=== PATIENT | female | born 1945 | race Hispanic/Latino ===

== ENCOUNTER → 2017-03-13 | Day surgery (SDC) | payer OTHER ==
[~2017-03-13] VITALS: Ht 165.1 cm; Wt 80.7 kg
--- NOTE | 2017-03-13 14:35 | Operative Report ---
Operative/Inv Procedure Report Surgery Date: 03/13/17 Name of Procedure: TURBT Pre-Operative Diagnosis: bladder tumor Post-Operative Diagnosis: same Estimated Blood Loss: less than 50ml Surgeon/Cover Cutter: Isatu Christensen MD Anesthesia: laryngeal mask airway Drains: 16fr muse Specimens: bladder tumor chips Complications: none Condition: stable Operative Indication: bladder tumor Operative/Procedure Note Note: This operative dictation on patient Belinda Davenport. She is a 71-year-old female with a history of gross hematuria was evaluated in the office with the cystoscopy. She was found to have a bladder mass. She was given the risks benefits and alternatives of intervention for this bladder tumor. All questions were answered for her and her family. She was identified in the holding area and consented for transurethral resection of the bladder tumor. Again the risks benefits and alternatives were given and the patient signed the consent. The patient was taken to the operating room placed on the operating table in the supine position. Timeout was performed. IV antibiotics were infused and general anesthesia was started with LMA. Patient was placed in the dorsolithotomy position and prepped and draped in the standard sterile fashion. Cystoscopy was performed and the bladder was globally inspected. Ureteral orifices were in the normal anatomic position. The bladder tumor was seen to be on the right lateral wall superior to the presumed location of the ureteral orifice. It was difficult to locate the UO so cutting energy setting was used throughout as much as possible. The tumor was resected with the 24 Azeri resectoscope and loop. Care was taken not to perforate the bladder but go deep enough to involve detrusor muscle. Once the tumor was entirely resected, point coagulation was performed and the bladder tumor resection bed was coagulated entirely. All the bladder fragments were removed with an [employer] evacuator. This was sent in formalin. There was no active bleeding and there were no more bladder tumor chips. 16 Azeri Muse catheter was placed and attached to a Muse bag. Patient tolerated the procedure well. She was transferred to the recovery room stable condition. Findings: bladder tumor at right lateral wall superior to the UO Discharge Disposition: PACU
== END ==
LOC: STS 03:40
DX: C67.2 Malignant neoplasm of lateral wall of bladder (principal); Z87.891 Personal history of nicotine dependence; E10.9 Type 1 diabetes mellitus without complications; Z79.4 Long term (current) use of insulin; I10 Essential (primary) hypertension
CPT/HCPCS: J0131; J0690; J0744; J2250